=== PATIENT | female | born 1940 | race Caucasian/White ===

== ENCOUNTER 2018-02-13 00:52 | Inpatient (IN) | payer MEDICARE, OTHER ==
[2018-02-13 02:18] LABS: ADD MAN DIFF? NO; BASOPHIL # 0.1 10^3/ul (0.0-0.1); BASOPHILS % 0.7 % (0.0-2.0); EOSINOPHILS % 11.2 % (0.0-7.0); HEMATOCRIT 37.7 % (37.0-47.0); HEMOGLOBIN 11.8 g/dl (12.0-16.0); LYMPHOCYTES # 2.3 10^3/ul (0.8-2.9); LYMPHOCYTES % 24.6 % (15.0-51.0); MEAN CORPUSCULAR HGB CONC 31.3 g/dl (32.0-37.0); MEAN CORPUSCULAR VOLUME 89.5 fl (82.0-101.0); MEAN PLATELET VOLUME 11.3 fl (7.4-10.4); MONOCYTE # 0.7 10^3/ul (0.3-0.9); NEUTROPHIL # 5.1 10^3/ul (1.6-7.5); NEUTROPHILS % 55.2 % (39.0-77.0); PLATELET COUNT 230 10^3/UL (140-415); RED BLOOD COUNT 4.21 10^6/ul (4.20-5.40); RED CELL DISTRIBUTION WIDTH 15.6 % (11.5-14.5)
[2018-02-13 02:18] LABS: WHITE BLOOD COUNT 9.2 10^3/ul (4.8-10.8)
[2018-02-13 02:19] LABS: AADO2 Arterial 26.1 mmHg (7.0-24.0); Allen Test ACCEPTAB; Arterial Base Excess 1.8 mmol/L (-3.0-3); Arterial Blood Gas Oxygen Sat 92.7 mmHG (95.0-100.0); Arterial COHb 0.6 % (0.0-3.0); Arterial Fraction of Oxyhgb 92.1 % (93.0-99.0); Arterial HCO3 27.4 mmol/L (22.0-26.0); Arterial MetHb 0.1 % (0.0-1.5); Arterial Total Hemglobin 12.9 g/dl (12.0-18.0); Arterial pCO2 46.7 mmhg (35-45); MODE ROOM AIR; Site Right Radial
[2018-02-13 02:26] LABS: ALANINE AMINOTRANSFERASE 19 IU/L (13-69); ALBUMIN 3.7 g/dl (3.3-4.9); ALBUMIN/GLOBULIN RATIO 1.02; ALKALINE PHOSPHATASE 109 IU/L (42-121); ANION GAP 10 (8-16); ASPARTATE AMINO TRANSFERASE 26 IU/L (15-46); BILIRUBIN,INDIRECT 0.4 mg/dl (0-1.1); BILIRUBIN,TOTAL 0.4 mg/dl (0.2-1.3); BLOOD UREA NITROGEN 24 mg/dl (7-20); CALCIUM 8.9 mg/dl (8.4-10.2); CARBON DIOXIDE 26 mmol/L (21-31); CHLORIDE 109 mmol/L (97-110); CREATININE 0.89 mg/dl (0.44-1.00); GLUCOSE 69 mg/dl (70-220); SODIUM 141 mmol/L (135-144); TOTAL PROTEIN 7.3 g/dl (6.1-8.1)
[2018-02-13 02:37] LABS: B-TYPE NATRIURETIC PEPTIDE 297 PG/ML (0-450); INR 0.97; TROPONIN-I < 0.010 ng/ml (0.000-0.120)
[2018-02-13 02:40] LABS: D-DIMER 2227.86 ng/ml (<460)
[2018-02-13] MEDS: IOHEXOL 100 ML (03:10)
[2018-02-13] MEDS: SOD CHLORIDE 0.9% 100 ML (03:10)
[2018-02-13] MEDS: IOHEXOL 350MG/ML 50 ML BTL (03:10)
[2018-02-13] MEDS: KETOROLAC 15 MG INJ IV (04:36)
[2018-02-13] MEDS: ASPIRIN 81 MG TAB PO (05:30)
[2018-02-13] MEDS ORDERED: MAGNESIUM HYDROXIDE 30ML CUP PO (09:00)
[2018-02-13] MEDS ORDERED: ONDANSETRON 4 MG INJ IV (09:00)
[2018-02-13] MEDS ORDERED: DOCUSATE SODIUM 100 MG CAP PO (09:00)
[2018-02-13] MEDS ORDERED: ACETAMINOPHEN 325 MG TAB PO (09:00)
[2018-02-13] MEDS ORDERED: NITROGLYCERIN (SL) 0.4 MG TAB SL (09:00)
[2018-02-13] MEDS ORDERED: NACL 0.9% 3 ML SYG IV (09:00)
[2018-02-13] MEDS ORDERED: ALBUTEROL 0.083% (NEB) 2.5 MG/3 ML AMP HHN (09:30)
[2018-02-13] MEDS: ASPIRIN (EC) 81 MG TAB PO (11:18)
[2018-02-13] MEDS: ENOXAPARIN 40 MG/0.4 ML SYG SC (11:18)
[2018-02-13] MEDS ORDERED: DEXTROSE 50% 50 ML SYRINGE (11:25)
[2018-02-13] MEDS: DEXTROSE 50% 50 ML SYRINGE IV (11:42)
[2018-02-13] MEDS ORDERED: GLUCAGON 1 MG INJ IM (12:00)
[2018-02-13] MEDS ORDERED: GLUCOSE GEL 15 GRAM TUBE BUCCAL (12:00)
[2018-02-13] MEDS: INSULIN ASPART [NOVOLOG] 3 ML PEN SC ×3 (12:00→21:28)
[2018-02-13] MEDS ORDERED: GLUCOSE GEL 15 GRAM TUBE PO ×2 (12:00)
[2018-02-13] MEDS: ALBUTEROL/IPRATROPIUM (NEB) 3 ML AMP HHN ×3 (13:44→20:08)
[2018-02-13 13:46] LABS: MAGNESIUM 1.5 mg/dl (1.7-2.5)
[2018-02-13 13:48] LABS: HEMOGLOBIN A1C 9.7 % (0-5.9)
[2018-02-13] MEDS: METHYLPREDNISOLONE 125 MG INJ IV ×2 (13:52→21:14)
[2018-02-13] MEDS: HYDROCODONE/APAP (5/325) TAB PO (13:53)
[2018-02-13] MEDS: FUROSEMIDE 40 MG INJ IV (13:53)
[2018-02-13 17:26] LABS: IRON 51 ug/dl (35-150)
[2018-02-13 17:35] LABS: % IRON SATURATION 15 % SAT (22-52); TOTAL IRON BINDING CAPACITY 336 ug/dl (241-421)
[2018-02-13] MEDS: MAGNESIUM SULFATE 2 GM/50 ML 50 ML IVPB (18:27)
[2018-02-13] MEDS: INSULIN GLARGINE [LANTus] (100 UNITS/ML) SYG SC (21:29)
[2018-02-14] MEDS: METHYLPREDNISOLONE 125 MG INJ IV (06:20)
[2018-02-14 07:18] LABS: ADD MAN DIFF? NO
[2018-02-14 07:22] LABS: BASOPHILS % 0.1 % (0.0-2.0); HEMATOCRIT 39.4 % (37.0-47.0); HEMOGLOBIN 12.4 g/dl (12.0-16.0); LYMPHOCYTES # 0.8 10^3/ul (0.8-2.9); LYMPHOCYTES % 9.9 % (15.0-51.0); MEAN CORPUSCULAR HEMOGLOBIN 27.7 pg (29.0-33.0); MEAN CORPUSCULAR HGB CONC 31.5 g/dl (32.0-37.0); MEAN CORPUSCULAR VOLUME 88.1 fl (82.0-101.0); MEAN PLATELET VOLUME 11.5 fl (7.4-10.4); MONOCYTE # 0.2 10^3/ul (0.3-0.9); MONOCYTES % 2.5 % (0.0-11.0); NEUTROPHIL # 6.6 10^3/ul (1.6-7.5); NEUTROPHILS % 86.6 % (39.0-77.0); PLATELET COUNT 253 10^3/UL (140-415); RED BLOOD COUNT 4.47 10^6/ul (4.20-5.40); RED CELL DISTRIBUTION WIDTH 15.2 % (11.5-14.5)
[2018-02-14 07:22] LABS: WHITE BLOOD COUNT 7.7 10^3/ul (4.8-10.8)
[2018-02-14 08:08] LABS: ALBUMIN 3.6 g/dl (3.3-4.9); ANION GAP 12 (8-16); BLOOD UREA NITROGEN 24 mg/dl (7-20); CALCIUM 8.8 mg/dl (8.4-10.2); CARBON DIOXIDE 27 mmol/L (21-31); CHLORIDE 103 mmol/L (97-110); GLUCOSE 323 mg/dl (70-220); MAGNESIUM 1.6 mg/dl (1.7-2.5); PHOSPHORUS 3.8 mg/dl (2.5-4.9); POTASSIUM 4.9 mmol/L (3.5-5.1); SODIUM 137 mmol/L (135-144)
[2018-02-14] MEDS: INSULIN ASPART [NOVOLOG] 3 ML PEN SC ×4 (08:16→21:31)
[2018-02-14] MEDS: ALBUTEROL/IPRATROPIUM (NEB) 3 ML AMP HHN ×4 (09:14→20:03)
[2018-02-14] MEDS: ASPIRIN (EC) 81 MG TAB PO (09:43)
[2018-02-14] MEDS: MAGNESIUM OXIDE 400 MG TAB PO (09:44)
[2018-02-14] MEDS: ENOXAPARIN 40 MG/0.4 ML SYG SC (09:58)
[2018-02-14] MEDS: LOSARTAN 25 MG TAB PO ×2 (11:33→21:15)
[2018-02-14] MEDS: INSULIN GLARGINE [LANTus] (100 UNITS/ML) SYG SC ×2 (11:43→20:00)
[2018-02-14] MEDS: RANITIDINE 150 MG TAB PO (21:14)
[2018-02-14] MEDS: METHYLPREDNISOLONE 40 MG INJ IV (21:15)
[2018-02-14] MEDS: LORAZEPAM 1 MG TAB PO (21:15)
[2018-02-15] MEDS: INSULIN ASPART [NOVOLOG] 3 ML PEN SC ×6 (03:20→20:37)
[2018-02-15 06:09] LABS: ADD MAN DIFF? NO
[2018-02-15 06:21] LABS: BASOPHILS % 0.2 % (0.0-2.0); HEMATOCRIT 38.5 % (37.0-47.0); HEMOGLOBIN 12.1 g/dl (12.0-16.0); LYMPHOCYTES # 0.9 10^3/ul (0.8-2.9); LYMPHOCYTES % 9.3 % (15.0-51.0); MEAN CORPUSCULAR HGB CONC 31.4 g/dl (32.0-37.0); MEAN CORPUSCULAR VOLUME 89.1 fl (82.0-101.0); MEAN PLATELET VOLUME 11.2 fl (7.4-10.4); MONOCYTE # 0.5 10^3/ul (0.3-0.9); MONOCYTES % 4.9 % (0.0-11.0); PLATELET COUNT 263 10^3/UL (140-415); RED BLOOD COUNT 4.32 10^6/ul (4.20-5.40); RED CELL DISTRIBUTION WIDTH 15.3 % (11.5-14.5)
[2018-02-15 06:21] LABS: WHITE BLOOD COUNT 9.4 10^3/ul (4.8-10.8)
[2018-02-15 06:54] LABS: ALBUMIN 3.4 g/dl (3.3-4.9); ANION GAP 11 (8-16); BLOOD UREA NITROGEN 27 mg/dl (7-20); CALCIUM 8.6 mg/dl (8.4-10.2); CARBON DIOXIDE 30 mmol/L (21-31); CHLORIDE 103 mmol/L (97-110); CREATININE 0.94 mg/dl (0.44-1.00); GLUCOSE 243 mg/dl (70-220); MAGNESIUM 1.6 mg/dl (1.7-2.5); PHOSPHORUS 3.4 mg/dl (2.5-4.9); SODIUM 139 mmol/L (135-144)
[2018-02-15] MEDS: ALBUTEROL/IPRATROPIUM (NEB) 3 ML AMP HHN ×4 (08:25→20:40)
[2018-02-15] MEDS: METHYLPREDNISOLONE 40 MG INJ IV ×2 (08:46→20:29)
[2018-02-15] MEDS: ASPIRIN (EC) 81 MG TAB PO (08:47)
[2018-02-15] MEDS: ENOXAPARIN 40 MG/0.4 ML SYG SC (08:49)
[2018-02-15] MEDS: LOSARTAN 25 MG TAB PO ×2 (08:51→21:14)
[2018-02-15] MEDS: INSULIN GLARGINE [LANTus] (100 UNITS/ML) SYG SC ×2 (10:54→20:31)
[2018-02-15] MEDS: MAGNESIUM SULFATE 3 GM in DEXTROSE 5% 100 ML IVPB (12:04)
[2018-02-15] MEDS: LORAZEPAM 1 MG TAB PO (20:29)
[2018-02-15] MEDS: RANITIDINE 150 MG TAB PO (20:29)
[2018-02-16 06:33] LABS: ADD MAN DIFF? NO
[2018-02-16 06:38] LABS: BASOPHILS % 0.2 % (0.0-2.0); HEMATOCRIT 40.8 % (37.0-47.0); LYMPHOCYTES % 10.7 % (15.0-51.0); MEAN CORPUSCULAR HEMOGLOBIN 27.8 pg (29.0-33.0); MEAN CORPUSCULAR HGB CONC 31.9 g/dl (32.0-37.0); MEAN CORPUSCULAR VOLUME 87.4 fl (82.0-101.0); MONOCYTE # 0.4 10^3/ul (0.3-0.9); MONOCYTES % 4.3 % (0.0-11.0); NEUTROPHIL # 7.7 10^3/ul (1.6-7.5); NEUTROPHILS % 83.8 % (39.0-77.0); PLATELET COUNT 271 10^3/UL (140-415); RED BLOOD COUNT 4.67 10^6/ul (4.20-5.40); RED CELL DISTRIBUTION WIDTH 15.5 % (11.5-14.5)
[2018-02-16 06:38] LABS: WHITE BLOOD COUNT 9.2 10^3/ul (4.8-10.8)
[2018-02-16 06:56] LABS: ALBUMIN 3.8 g/dl (3.3-4.9); ANION GAP 12 (8-16); BLOOD UREA NITROGEN 32 mg/dl (7-20); CALCIUM 9.2 mg/dl (8.4-10.2); CARBON DIOXIDE 32 mmol/L (21-31); CHLORIDE 99 mmol/L (97-110); CREATININE 0.89 mg/dl (0.44-1.00); GLUCOSE 220 mg/dl (70-220); MAGNESIUM 1.9 mg/dl (1.7-2.5); PHOSPHORUS 3.7 mg/dl (2.5-4.9); SODIUM 138 mmol/L (135-144)
[2018-02-16] MEDS: METHYLPREDNISOLONE 40 MG INJ IV (08:15)
[2018-02-16] MEDS: LOSARTAN 25 MG TAB PO ×2 (08:15→11:17)
[2018-02-16] MEDS: ASPIRIN (EC) 81 MG TAB PO (08:15)
[2018-02-16] MEDS: ENOXAPARIN 40 MG/0.4 ML SYG SC (08:21)
[2018-02-16] MEDS: INSULIN ASPART [NOVOLOG] 3 ML PEN SC ×7 (08:21→20:10)
[2018-02-16] MEDS: INSULIN GLARGINE [LANTus] (100 UNITS/ML) SYG SC ×2 (08:49→20:18)
[2018-02-16] MEDS: ALBUTEROL/IPRATROPIUM (NEB) 3 ML AMP HHN ×4 (09:40→20:00)
[2018-02-16] MEDS: hydrALAzine 20 MG INJ IV ×2 (15:09→20:37)
[2018-02-16] MEDS: LORAZEPAM 1 MG TAB PO (20:09)
[2018-02-16] MEDS: RANITIDINE 150 MG TAB PO (20:09)
[2018-02-16] MEDS: LOSARTAN 50 MG TAB PO (20:10)
[2018-02-16] MEDS: HYDROCODONE/APAP (10/325) TAB PO (21:29)
[2018-02-17] MEDS: hydrALAzine 20 MG INJ IV (02:10)
[2018-02-17 06:36] LABS: ANION GAP 11 (8-16); BLOOD UREA NITROGEN 38 mg/dl (7-20); CALCIUM 8.8 mg/dl (8.4-10.2); CARBON DIOXIDE 31 mmol/L (21-31); CHLORIDE 101 mmol/L (97-110); CREATININE 0.99 mg/dl (0.44-1.00); GLUCOSE 58 mg/dl (70-220); MAGNESIUM 1.8 mg/dl (1.7-2.5); POTASSIUM 4.2 mmol/L (3.5-5.1); SODIUM 139 mmol/L (135-144)
[2018-02-17] MEDS: INSULIN ASPART [NOVOLOG] 3 ML PEN SC ×7 (07:31→21:00)
[2018-02-17] MEDS: ENOXAPARIN 40 MG/0.4 ML SYG SC (08:12)
[2018-02-17] MEDS: INSULIN GLARGINE [LANTus] (100 UNITS/ML) SYG SC ×2 (08:13→22:07)
[2018-02-17] MEDS: ASPIRIN (EC) 81 MG TAB PO (08:14)
[2018-02-17] MEDS: HYDROCODONE/APAP (5/325) TAB PO (08:14)
[2018-02-17] MEDS: LOSARTAN 50 MG TAB PO ×2 (08:14→20:17)
[2018-02-17] MEDS: ALBUTEROL/IPRATROPIUM (NEB) 3 ML AMP HHN ×4 (09:14→20:01)
[2018-02-17] MEDS: DEXTROSE 50% 50 ML SYRINGE IV (11:38)
[2018-02-17 14:40] LABS: ALANINE AMINOTRANSFERASE 65 IU/L (13-69); ALBUMIN 3.7 g/dl (3.3-4.9); ALBUMIN/GLOBULIN RATIO 1.05; ALKALINE PHOSPHATASE 94 IU/L (42-121); ANION GAP 12 (8-16); ASPARTATE AMINO TRANSFERASE 65 IU/L (15-46); BILIRUBIN,INDIRECT 0.6 mg/dl (0-1.1); BILIRUBIN,TOTAL 0.6 mg/dl (0.2-1.3); BLOOD UREA NITROGEN 41 mg/dl (7-20); CALCIUM 8.8 mg/dl (8.4-10.2); CARBON DIOXIDE 30 mmol/L (21-31); CHLORIDE 99 mmol/L (97-110); CREATININE 1.22 mg/dl (0.44-1.00); GLUCOSE 117 mg/dl (70-220); POTASSIUM 4.2 mmol/L (3.5-5.1); SODIUM 137 mmol/L (135-144); TOTAL PROTEIN 7.2 g/dl (6.1-8.1)
[2018-02-17] MEDS ORDERED: INSULIN GLARGINE [LANTus] (100 UNITS/ML) SYG SC (20:00)
[2018-02-17] MEDS: LORAZEPAM 1 MG TAB PO (20:10)
[2018-02-17] MEDS: RANITIDINE 150 MG TAB PO (20:10)
[2018-02-18] MEDS: HYDROCODONE/APAP (10/325) TAB PO (00:22)
[2018-02-18] MEDS: DEXTROSE 50% 50 ML SYRINGE IV (03:13)
[2018-02-18 07:47] LABS: ADD MAN DIFF? NO
[2018-02-18 07:52] LABS: BASOPHILS % 0.6 % (0.0-2.0); EOSINOPHILS # 0.5 10^3/ul (0.0-0.5); EOSINOPHILS % 7.4 % (0.0-7.0); HEMATOCRIT 42.5 % (37.0-47.0); HEMOGLOBIN 13.3 g/dl (12.0-16.0); LYMPHOCYTES # 1.8 10^3/ul (0.8-2.9); LYMPHOCYTES % 25.6 % (15.0-51.0); MEAN CORPUSCULAR HEMOGLOBIN 28.5 pg (29.0-33.0); MEAN CORPUSCULAR HGB CONC 31.3 g/dl (32.0-37.0); MEAN PLATELET VOLUME 10.8 fl (7.4-10.4); MONOCYTE # 0.6 10^3/ul (0.3-0.9); MONOCYTES % 8.6 % (0.0-11.0); NEUTROPHILS % 57.1 % (39.0-77.0); PLATELET COUNT 275 10^3/UL (140-415); RED BLOOD COUNT 4.67 10^6/ul (4.20-5.40); RED CELL DISTRIBUTION WIDTH 15.9 % (11.5-14.5)
[2018-02-18] MEDS: INSULIN ASPART [NOVOLOG] 3 ML PEN SC ×3 (07:55→11:50)
[2018-02-18] MEDS ORDERED: INSULIN GLARGINE [LANTus] (100 UNITS/ML) SYG SC (08:00)
[2018-02-18 08:19] LABS: ANION GAP 10 (8-16); BLOOD UREA NITROGEN 49 mg/dl (7-20); CALCIUM 8.4 mg/dl (8.4-10.2); CARBON DIOXIDE 34 mmol/L (21-31); CHLORIDE 99 mmol/L (97-110); CREATININE 1.35 mg/dl (0.44-1.00); MAGNESIUM 1.9 mg/dl (1.7-2.5); PHOSPHORUS 5.1 mg/dl (2.5-4.9); POTASSIUM 4.1 mmol/L (3.5-5.1); SODIUM 139 mmol/L (135-144)
[2018-02-18 08:23] LABS: GLUCOSE 43 mg/dl (70-220)
[2018-02-18] MEDS: ASPIRIN (EC) 81 MG TAB PO (08:28)
[2018-02-18] MEDS: LOSARTAN 50 MG TAB PO (08:28)
[2018-02-18] MEDS: HYDROCODONE/APAP (5/325) TAB PO (08:33)
[2018-02-18] MEDS: ENOXAPARIN 40 MG/0.4 ML SYG SC (08:38)
[2018-02-18] MEDS: ALBUTEROL/IPRATROPIUM (NEB) 3 ML AMP HHN ×2 (08:47→13:00)
[2018-02-18] MEDS ORDERED: HYDROCORTISONE 1% 28 GM CR TOP (09:30)
== END 2018-02-18 15:55 | DRG 190 ==
LOC: E/R 00:52 → TEL 05:05
DX: J44.1 Chronic obstructive pulmonary disease with (acute) exacerbation (principal); J96.01 Acute respiratory failure with hypoxia; J96.02 Acute respiratory failure with hypercapnia; Z68.43 Body mass index [BMI] 50.0-59.9, adult; E66.2 Morbid (severe) obesity with alveolar hypoventilation; E11.649 Type 2 diabetes mellitus with hypoglycemia without coma; E83.42 Hypomagnesemia; J20.9 Acute bronchitis, unspecified; J44.0 Chronic obstructive pulmonary disease with (acute) lower respiratory infection; R25.2 Cramp and spasm; I10 Essential (primary) hypertension; D64.9 Anemia, unspecified; E78.5 Hyperlipidemia, unspecified; Z79.4 Long term (current) use of insulin; Z79.82 Long term (current) use of aspirin; Z98.51 Tubal ligation status; Z98.890 Other specified postprocedural states; Z87.891 Personal history of nicotine dependence
CPT/HCPCS: 36415; 36600; 71045; 71275; 80048; 80053; 80069; 82803; 82962; 83036; 83540; 83735; 83880; 84100; 84484; 85025; 85378; 85610; 85730; 93005; 93306; 93970; 94640; 96374; 97110; 97163; 97165; 97530; 97535; 99285-25

== ENCOUNTER 2018-02-18 16:05 | Inpatient (IN) | payer MEDICARE, OTHER ==
[2018-02-18] MEDS ORDERED: ONDANSETRON 4 MG TAB PO (17:00)
[2018-02-18] MEDS ORDERED: NITROGLYCERIN (SL) 0.4 MG TAB SL (17:00)
[2018-02-18] MEDS ORDERED: PENDING SANTYL ORDER FOR WOUND CARE XX (17:00)
[2018-02-18] MEDS: ALBUTEROL/IPRATROPIUM (NEB) 3 ML AMP HHN ×2 (17:00→20:19)
[2018-02-18 17:09] LABS: ADD UMIC YES; UR ASCORBIC ACID NEGATIVE (NEGATIVE); UR BACTERIA MODERATE /HPF (NONE SEEN); UR BILIRUBIN (Dip) NEGATIVE (NEGATIVE); UR BLOOD (Dip) NEGATIVE (NEGATIVE); UR CLARITY SLIGHTLY CLOUDY (CLEAR); UR COLOR YELLOW (YELLOW); UR GLUCOSE (Dip) NEGATIVE (NEGATIVE); UR KETONES (Dip) NEGATIVE (NEGATIVE); UR LEUKOCYTE ESTERASE (Dip) 1+ Leu/ul (NEGATIVE); UR NITRITE (Dip) NEGATIVE (NEGATIVE); UR RBC 0 /HPF (0-5); UR SPECIFIC GRAVITY (Dip) 1.005 (1.003-1.030); UR SQUAMOUS EPITHELIAL CELL FEW /HPF (FEW); UR TOTAL PROTEIN (Dip) NEGATIVE (NEGATIVE); UR UROBILINOGEN (Dip) NEGATIVE (NEGATIVE); UR WBC 7 /HPF (0-5)
[2018-02-18] MEDS: INSULIN ASPART [NOVOLOG] 3 ML PEN SC ×2 (17:35→21:00)
[2018-02-18] MEDS: ALBUTEROL 0.083% (NEB) 2.5 MG/3 ML AMP HHN (18:00)
[2018-02-18] MEDS ORDERED: GLUCAGON 1 MG INJ IM (18:30)
[2018-02-18] MEDS ORDERED: DEXTROSE 50% 50 ML SYRINGE IV ×2 (18:30)
[2018-02-18] MEDS ORDERED: GLUCOSE GEL 15 GRAM TUBE BUCCAL (18:30)
[2018-02-18] MEDS ORDERED: GLUCOSE GEL 15 GRAM TUBE PO ×2 (18:30)
[2018-02-18] MEDS: DOCUSATE SODIUM 100 MG CAP PO (21:00)
[2018-02-18] MEDS: RANITIDINE 150 MG TAB PO (21:01)
[2018-02-18] MEDS: LORAZEPAM 1 MG TAB PO (21:01)
[2018-02-18] MEDS: LOSARTAN 50 MG TAB PO (21:02)
[2018-02-18] MEDS: HYDROCORTISONE 1% 28 GM CR TOP (21:06)
[2018-02-19] MEDS: ALBUTEROL/IPRATROPIUM (NEB) 3 ML AMP HHN ×6 (00:33→20:21)
[2018-02-19] MEDS: ACCU-CHEK XX (02:00)
[2018-02-19] MEDS: HYDROCODONE/APAP (10/325) TAB PO ×3 (02:05→21:49)
[2018-02-19 07:34] LABS: ADD MAN DIFF? NO
[2018-02-19] MEDS: INSULIN ASPART [NOVOLOG] 3 ML PEN SC ×4 (07:35→20:43)
[2018-02-19 07:39] LABS: BASOPHILS % 0.4 % (0.0-2.0); EOSINOPHILS # 0.6 10^3/ul (0.0-0.5); EOSINOPHILS % 8.1 % (0.0-7.0); HEMATOCRIT 41.2 % (37.0-47.0); HEMOGLOBIN 12.6 g/dl (12.0-16.0); LYMPHOCYTES # 1.7 10^3/ul (0.8-2.9); LYMPHOCYTES % 22.9 % (15.0-51.0); MEAN CORPUSCULAR HEMOGLOBIN 27.2 pg (29.0-33.0); MEAN CORPUSCULAR HGB CONC 30.6 g/dl (32.0-37.0); MEAN PLATELET VOLUME 10.7 fl (7.4-10.4); MONOCYTE # 0.5 10^3/ul (0.3-0.9); MONOCYTES % 7.3 % (0.0-11.0); NEUTROPHIL # 4.4 10^3/ul (1.6-7.5); NEUTROPHILS % 60.8 % (39.0-77.0); PLATELET COUNT 260 10^3/UL (140-415); RED BLOOD COUNT 4.63 10^6/ul (4.20-5.40); RED CELL DISTRIBUTION WIDTH 15.7 % (11.5-14.5)
[2018-02-19 07:39] LABS: WHITE BLOOD COUNT 7.3 10^3/ul (4.8-10.8)
[2018-02-19 08:00] LABS: ALANINE AMINOTRANSFERASE 43 IU/L (13-69); ALBUMIN 3.2 g/dl (3.3-4.9); ALBUMIN/GLOBULIN RATIO 0.96; ALKALINE PHOSPHATASE 84 IU/L (42-121); ANION GAP 11 (8-16); ASPARTATE AMINO TRANSFERASE 25 IU/L (15-46); BILIRUBIN,INDIRECT 0.5 mg/dl (0-1.1); BILIRUBIN,TOTAL 0.5 mg/dl (0.2-1.3); BLOOD UREA NITROGEN 47 mg/dl (7-20); CALCIUM 8.4 mg/dl (8.4-10.2); CARBON DIOXIDE 29 mmol/L (21-31); CHLORIDE 103 mmol/L (97-110); CREATININE 1.17 mg/dl (0.44-1.00); GLUCOSE 140 mg/dl (70-220); POTASSIUM 4.8 mmol/L (3.5-5.1); SODIUM 138 mmol/L (135-144); TOTAL PROTEIN 6.5 g/dl (6.1-8.1)
[2018-02-19] MEDS: DOCUSATE SODIUM 100 MG CAP PO ×2 (09:00→21:00)
[2018-02-19] MEDS: ENOXAPARIN 30 MG/0.3 ML SYG SC (09:11)
[2018-02-19] MEDS: ASPIRIN (EC) 81 MG TAB PO (09:11)
[2018-02-19] MEDS: LOSARTAN 50 MG TAB PO ×2 (09:12→20:16)
[2018-02-19] MEDS: HYDROCORTISONE 1% 28 GM CR TOP ×2 (09:12→20:17)
[2018-02-19] MEDS: RANITIDINE 150 MG TAB PO (20:15)
[2018-02-19] MEDS: INSULIN GLARGINE [LANTus] (100 UNITS/ML) SYG SC (21:26)
[2018-02-19] MEDS: LORAZEPAM 1 MG TAB PO (21:49)
[2018-02-20] MEDS: ALBUTEROL/IPRATROPIUM (NEB) 3 ML AMP HHN ×6 (01:21→20:29)
[2018-02-20] MEDS: ACCU-CHEK XX (02:12)
[2018-02-20] MEDS: ENOXAPARIN 30 MG/0.3 ML SYG SC (09:02)
[2018-02-20] MEDS: INSULIN ASPART [NOVOLOG] 3 ML PEN SC ×5 (09:02→20:53)
[2018-02-20] MEDS: DOCUSATE SODIUM 100 MG CAP PO ×2 (09:06→20:57)
[2018-02-20] MEDS: LOSARTAN 50 MG TAB PO ×2 (09:06→20:59)
[2018-02-20] MEDS: ASPIRIN (EC) 81 MG TAB PO (09:06)
[2018-02-20] MEDS: HYDROCORTISONE 1% 28 GM CR TOP ×2 (09:07→21:00)
[2018-02-20] MEDS: CIPROFLOXACIN 500 MG TAB PO ×2 (18:00→18:56)
[2018-02-20] MEDS ORDERED: CEFTRIAXONE 1 GM/50 ML (PMX) 50 ML IVPB (18:00)
[2018-02-20] MEDS: INSULIN GLARGINE [LANTus] (100 UNITS/ML) SYG SC (20:53)
[2018-02-20] MEDS: RANITIDINE 150 MG TAB PO (20:56)
[2018-02-20] MEDS: HYDROCODONE/APAP (5/325) TAB PO (22:00)
[2018-02-20] MEDS: LORAZEPAM 1 MG TAB PO (22:00)
[2018-02-21] MEDS: ALBUTEROL/IPRATROPIUM (NEB) 3 ML AMP HHN ×6 (00:58→20:27)
[2018-02-21] MEDS: ACCU-CHEK XX (02:00)
[2018-02-21] MEDS: CIPROFLOXACIN 500 MG TAB PO ×2 (06:17→17:15)
[2018-02-21] MEDS: MAGNESIUM HYDROXIDE 30ML CUP PO (06:17)
[2018-02-21] MEDS: INSULIN ASPART [NOVOLOG] 3 ML PEN SC ×7 (07:44→20:45)
[2018-02-21] MEDS: ASPIRIN (EC) 81 MG TAB PO (09:19)
[2018-02-21] MEDS: HYDROCORTISONE 1% 28 GM CR TOP ×2 (09:19→21:47)
[2018-02-21] MEDS: DOCUSATE SODIUM 100 MG CAP PO ×2 (09:19→20:30)
[2018-02-21] MEDS: LOSARTAN 50 MG TAB PO ×2 (09:20→20:36)
[2018-02-21] MEDS: ENOXAPARIN 30 MG/0.3 ML SYG SC (09:21)
[2018-02-21] MEDS: LACTULOSE 30ML CUP PO (09:23)
[2018-02-21] MEDS: LORAZEPAM 1 MG TAB PO ×2 (20:30→21:46)
[2018-02-21] MEDS: INSULIN GLARGINE [LANTus] (100 UNITS/ML) SYG SC (20:46)
[2018-02-21] MEDS: HYDROCODONE/APAP (5/325) TAB PO (21:46)
[2018-02-21] MEDS: RANITIDINE 150 MG TAB PO (21:46)
[2018-02-22] MEDS: ALBUTEROL/IPRATROPIUM (NEB) 3 ML AMP HHN ×6 (01:50→20:19)
[2018-02-22] MEDS: ACCU-CHEK XX (02:27)
[2018-02-22] MEDS: CIPROFLOXACIN 500 MG TAB PO ×2 (06:33→17:35)
[2018-02-22] MEDS: INSULIN ASPART [NOVOLOG] 3 ML PEN SC ×7 (07:46→21:05)
[2018-02-22] MEDS: DOCUSATE SODIUM 100 MG CAP PO ×2 (09:00→21:07)
[2018-02-22] MEDS: ENOXAPARIN 30 MG/0.3 ML SYG SC (09:02)
[2018-02-22] MEDS: ASPIRIN (EC) 81 MG TAB PO (09:03)
[2018-02-22] MEDS: LOSARTAN 50 MG TAB PO ×2 (09:03→21:07)
[2018-02-22] MEDS: HYDROCORTISONE 1% 28 GM CR TOP ×2 (09:04→21:09)
[2018-02-22] MEDS: INSULIN GLARGINE [LANTus] (100 UNITS/ML) SYG SC (21:07)
[2018-02-22] MEDS: RANITIDINE 150 MG TAB PO (21:07)
[2018-02-22] MEDS: LORAZEPAM 1 MG TAB PO (21:07)
[2018-02-22] MEDS: FLUOCINONIDE 0.05% 15 GM CR TOP (21:09)
[2018-02-22] MEDS: HYDROCODONE/APAP (5/325) TAB PO (21:59)
[2018-02-23] MEDS: ALBUTEROL/IPRATROPIUM (NEB) 3 ML AMP HHN ×6 (01:00→22:42)
[2018-02-23] MEDS: ACCU-CHEK XX (02:00)
[2018-02-23] MEDS: CIPROFLOXACIN 500 MG TAB PO ×2 (05:25→18:44)
[2018-02-23] MEDS: INSULIN ASPART [NOVOLOG] 3 ML PEN SC ×7 (07:46→20:34)
[2018-02-23] MEDS: LOSARTAN 50 MG TAB PO ×2 (09:00→20:29)
[2018-02-23] MEDS: HYDROCODONE/APAP (10/325) TAB PO (09:10)
[2018-02-23] MEDS: DOCUSATE SODIUM 100 MG CAP PO ×2 (09:11→20:28)
[2018-02-23] MEDS: FLUOCINONIDE 0.05% 15 GM CR TOP ×2 (09:11→20:35)
[2018-02-23] MEDS: ASPIRIN (EC) 81 MG TAB PO (09:11)
[2018-02-23] MEDS: ENOXAPARIN 30 MG/0.3 ML SYG SC (09:12)
[2018-02-23] MEDS: HYDROCORTISONE 1% 28 GM CR TOP ×2 (09:12→22:37)
[2018-02-23] MEDS: COLLAGENASE 5 GM (UD JAR) TOP (09:47)
[2018-02-23] MEDS: SODIUM HYPOCHLORITE (1/40) 1 APPLIC BTL IRR (09:47)
[2018-02-23] MEDS: RANITIDINE 150 MG TAB PO (20:28)
[2018-02-23] MEDS: INSULIN GLARGINE [LANTus] (100 UNITS/ML) SYG SC (20:32)
[2018-02-23] MEDS: LORAZEPAM 1 MG TAB PO (22:26)
[2018-02-23] MEDS: HYDROCODONE/APAP (5/325) TAB PO (22:26)
[2018-02-24] MEDS: ALBUTEROL/IPRATROPIUM (NEB) 3 ML AMP HHN ×5 (01:00→21:00)
[2018-02-24] MEDS: ACCU-CHEK XX (02:39)
[2018-02-24] MEDS: INSULIN ASPART [NOVOLOG] 3 ML PEN SC ×7 (07:35→21:28)
[2018-02-24] MEDS: DOCUSATE SODIUM 100 MG CAP PO ×2 (08:21→21:20)
[2018-02-24] MEDS: ASPIRIN (EC) 81 MG TAB PO (08:21)
[2018-02-24] MEDS: LOSARTAN 50 MG TAB PO ×2 (08:22→21:19)
[2018-02-24] MEDS: HYDROCORTISONE 1% 28 GM CR TOP ×2 (08:22→21:19)
[2018-02-24] MEDS: FLUOCINONIDE 0.05% 15 GM CR TOP ×2 (08:23→21:19)
[2018-02-24] MEDS: ENOXAPARIN 30 MG/0.3 ML SYG SC (08:25)
[2018-02-24] MEDS: SODIUM HYPOCHLORITE (1/40) 1 APPLIC BTL IRR (09:00)
[2018-02-24] MEDS: COLLAGENASE 5 GM (UD JAR) TOP (09:00)
[2018-02-24] MEDS: RANITIDINE 150 MG TAB PO (21:19)
[2018-02-24] MEDS: LORAZEPAM 1 MG TAB PO (21:20)
[2018-02-24] MEDS: INSULIN GLARGINE [LANTus] (100 UNITS/ML) SYG SC (21:28)
[2018-02-24] MEDS: HYDROCODONE/APAP (10/325) TAB PO (21:29)
[2018-02-25] MEDS: ALBUTEROL/IPRATROPIUM (NEB) 3 ML AMP HHN ×6 (01:11→19:45)
[2018-02-25] MEDS: ACCU-CHEK XX (02:00)
[2018-02-25] MEDS: INSULIN ASPART [NOVOLOG] 3 ML PEN SC ×7 (07:35→21:00)
[2018-02-25] MEDS: FLUOCINONIDE 0.05% 15 GM CR TOP ×2 (09:04→21:23)
[2018-02-25] MEDS: ENOXAPARIN 30 MG/0.3 ML SYG SC (09:04)
[2018-02-25] MEDS: HYDROCORTISONE 1% 28 GM CR TOP ×2 (09:04→21:23)
[2018-02-25] MEDS: LOSARTAN 50 MG TAB PO ×2 (09:05→21:22)
[2018-02-25] MEDS: DOCUSATE SODIUM 100 MG CAP PO ×2 (09:05→21:22)
[2018-02-25] MEDS: ASPIRIN (EC) 81 MG TAB PO (09:05)
[2018-02-25] MEDS: COLLAGENASE 5 GM (UD JAR) TOP (09:07)
[2018-02-25] MEDS: SODIUM HYPOCHLORITE (1/40) 1 APPLIC BTL IRR (11:10)
[2018-02-25] MEDS ORDERED: VANCOMYCIN IV PER PHARMACY XX (12:00)
[2018-02-25] MEDS: AMOXICILLIN/CLAV 875 MG TAB PO ×2 (15:50→22:44)
[2018-02-25] MEDS: INSULIN GLARGINE [LANTus] (100 UNITS/ML) SYG SC (21:19)
[2018-02-25] MEDS: RANITIDINE 150 MG TAB PO (21:23)
[2018-02-25] MEDS: HYDROCODONE/APAP (10/325) TAB PO (22:44)
[2018-02-25] MEDS: LORAZEPAM 1 MG TAB PO (22:44)
[2018-02-26] MEDS: ALBUTEROL/IPRATROPIUM (NEB) 3 ML AMP HHN ×6 (00:11→20:48)
[2018-02-26] MEDS: ACCU-CHEK XX (02:00)
[2018-02-26] MEDS: INSULIN ASPART [NOVOLOG] 3 ML PEN SC ×8 (07:45→21:31)
[2018-02-26] MEDS: FLUOCINONIDE 0.05% 15 GM CR TOP ×2 (09:00→21:29)
[2018-02-26] MEDS: SODIUM HYPOCHLORITE (1/40) 1 APPLIC BTL IRR (09:00)
[2018-02-26] MEDS: HYDROCORTISONE 1% 28 GM CR TOP ×2 (09:00→21:29)
[2018-02-26] MEDS: COLLAGENASE 5 GM (UD JAR) TOP (09:09)
[2018-02-26] MEDS: LOSARTAN 50 MG TAB PO ×2 (09:10→21:28)
[2018-02-26] MEDS: AMOXICILLIN/CLAV 875 MG TAB PO (09:10)
[2018-02-26] MEDS: ASPIRIN (EC) 81 MG TAB PO (09:11)
[2018-02-26] MEDS: HYDROCODONE/APAP (10/325) TAB PO (09:11)
[2018-02-26] MEDS: DOCUSATE SODIUM 100 MG CAP PO ×2 (09:11→21:00)
[2018-02-26] MEDS: ENOXAPARIN 30 MG/0.3 ML SYG SC (09:13)
[2018-02-26] MEDS: BISACODYL 10 MG SUPP PR (10:21)
[2018-02-26] MEDS: TRIMETHOPRIM/SULFAMETHOX (DS) TAB PO (10:21)
[2018-02-26] MEDS: MUPIROCIN 2% 22 GM OINT TOP (13:25)
[2018-02-26] MEDS: LINAGLIPTIN 5 MG TABLET PO (13:25)
[2018-02-26] MEDS: HYDROCODONE/APAP (5/325) TAB PO ×2 (13:25→21:52)
[2018-02-26] MEDS: RANITIDINE 150 MG TAB PO (21:27)
[2018-02-26] MEDS: INSULIN GLARGINE [LANTus] (100 UNITS/ML) SYG SC (21:30)
[2018-02-26] MEDS: LORAZEPAM 1 MG TAB PO (21:49)
[2018-02-27] MEDS: ALBUTEROL/IPRATROPIUM (NEB) 3 ML AMP HHN ×6 (00:15→21:57)
[2018-02-27] MEDS: ACCU-CHEK XX (02:19)
[2018-02-27] MEDS: INSULIN ASPART [NOVOLOG] 3 ML PEN SC ×7 (07:35→21:22)
[2018-02-27] MEDS: ASPIRIN (EC) 81 MG TAB PO (08:54)
[2018-02-27] MEDS: TRIMETHOPRIM/SULFAMETHOX (DS) TAB PO (08:55)
[2018-02-27] MEDS: LINAGLIPTIN 5 MG TABLET PO (08:55)
[2018-02-27] MEDS: DOCUSATE SODIUM 100 MG CAP PO ×2 (08:55→21:12)
[2018-02-27] MEDS: ENOXAPARIN 30 MG/0.3 ML SYG SC (08:56)
[2018-02-27] MEDS: HYDROCORTISONE 1% 28 GM CR TOP ×2 (08:58→21:15)
[2018-02-27] MEDS: FLUOCINONIDE 0.05% 15 GM CR TOP ×2 (08:58→21:15)
[2018-02-27] MEDS: COLLAGENASE 5 GM (UD JAR) TOP (08:59)
[2018-02-27] MEDS: LOSARTAN 50 MG TAB PO ×2 (09:00→21:12)
[2018-02-27] MEDS: MUPIROCIN 2% 22 GM OINT TOP (12:10)
[2018-02-27] MEDS: LORAZEPAM 1 MG TAB PO (21:01)
[2018-02-27] MEDS: HYDROCODONE/APAP (5/325) TAB PO (21:02)
[2018-02-27] MEDS: RANITIDINE 150 MG TAB PO (21:12)
[2018-02-27] MEDS: INSULIN GLARGINE [LANTus] (100 UNITS/ML) SYG SC (21:21)
[2018-02-27] MEDS: ACETAMINOPHEN 325 MG TAB PO (23:47)
[2018-02-28] MEDS: ALBUTEROL/IPRATROPIUM (NEB) 3 ML AMP HHN ×6 (01:00→20:46)
[2018-02-28] MEDS: HYDROCODONE/APAP (10/325) TAB PO ×3 (02:14→15:19)
[2018-02-28] MEDS: ACCU-CHEK XX (02:22)
[2018-02-28] MEDS: INSULIN ASPART [NOVOLOG] 3 ML PEN SC ×7 (07:35→21:03)
[2018-02-28] MEDS: MUPIROCIN 2% 22 GM OINT TOP (08:10)
[2018-02-28] MEDS: DOCUSATE SODIUM 100 MG CAP PO ×2 (08:10→20:43)
[2018-02-28] MEDS: TRIMETHOPRIM/SULFAMETHOX (DS) TAB PO (08:10)
[2018-02-28] MEDS: ASPIRIN (EC) 81 MG TAB PO (08:10)
[2018-02-28] MEDS: LINAGLIPTIN 5 MG TABLET PO (08:11)
[2018-02-28] MEDS: LOSARTAN 50 MG TAB PO ×2 (08:11→20:43)
[2018-02-28] MEDS: ENOXAPARIN 30 MG/0.3 ML SYG SC (08:16)
[2018-02-28] MEDS: HYDROCORTISONE 1% 28 GM CR TOP ×2 (09:00→21:19)
[2018-02-28] MEDS: FLUOCINONIDE 0.05% 15 GM CR TOP ×2 (10:00→21:19)
[2018-02-28] MEDS: COLLAGENASE 5 GM (UD JAR) TOP (10:00)
[2018-02-28] MEDS: DICLOFENAC SODIUM 1% GEL 100 GM TUBE TP ×2 (11:51→21:04)
[2018-02-28] MEDS: LIDOCAINE 2% JELLY 5 ML TOP (14:08)
[2018-02-28] MEDS: RANITIDINE 150 MG TAB PO (20:43)
[2018-02-28] MEDS: INSULIN GLARGINE [LANTus] (100 UNITS/ML) SYG SC (21:00)
[2018-02-28] MEDS: LORAZEPAM 1 MG TAB PO (21:49)
[2018-02-28] MEDS: HYDROCODONE/APAP (5/325) TAB PO (21:50)
[2018-03-01] MEDS: ALBUTEROL/IPRATROPIUM (NEB) 3 ML AMP HHN ×6 (00:47→20:25)
[2018-03-01] MEDS: ACCU-CHEK XX (02:10)
[2018-03-01] MEDS: HYDROCODONE/APAP (10/325) TAB PO ×3 (02:28→20:58)
[2018-03-01] MEDS: INSULIN ASPART [NOVOLOG] 3 ML PEN SC ×7 (07:33→21:11)
[2018-03-01] MEDS: DICLOFENAC SODIUM 1% GEL 100 GM TUBE TP ×2 (08:46→21:03)
[2018-03-01] MEDS: MUPIROCIN 2% 22 GM OINT TOP (08:46)
[2018-03-01] MEDS: DOCUSATE SODIUM 100 MG CAP PO ×2 (08:47→21:01)
[2018-03-01] MEDS: LINAGLIPTIN 5 MG TABLET PO (08:47)
[2018-03-01] MEDS: TRIMETHOPRIM/SULFAMETHOX (DS) TAB PO (08:47)
[2018-03-01] MEDS: ASPIRIN (EC) 81 MG TAB PO (08:47)
[2018-03-01] MEDS: LOSARTAN 50 MG TAB PO ×2 (08:47→21:02)
[2018-03-01] MEDS: ENOXAPARIN 30 MG/0.3 ML SYG SC (08:49)
[2018-03-01] MEDS: FLUOCINONIDE 0.05% 15 GM CR TOP ×2 (09:00→21:20)
[2018-03-01] MEDS: COLLAGENASE 5 GM (UD JAR) TOP (12:00)
[2018-03-01] MEDS: LORAZEPAM 1 MG TAB PO (21:01)
[2018-03-01] MEDS: RANITIDINE 150 MG TAB PO (21:01)
[2018-03-01] MEDS: INSULIN GLARGINE [LANTus] (100 UNITS/ML) SYG SC (21:12)
[2018-03-02] MEDS: HYDROCODONE/APAP (5/325) TAB PO ×2 (00:42→09:42)
[2018-03-02] MEDS: ALBUTEROL/IPRATROPIUM (NEB) 3 ML AMP HHN ×6 (01:00→20:20)
[2018-03-02] MEDS: ACCU-CHEK XX (02:23)
[2018-03-02] MEDS: INSULIN ASPART [NOVOLOG] 3 ML PEN SC ×7 (08:26→20:13)
[2018-03-02] MEDS: LOSARTAN 50 MG TAB PO ×2 (09:00→20:09)
[2018-03-02] MEDS: DOCUSATE SODIUM 100 MG CAP PO ×3 (09:00→20:10)
[2018-03-02] MEDS: LINAGLIPTIN 5 MG TABLET PO (09:06)
[2018-03-02] MEDS: TRIMETHOPRIM/SULFAMETHOX (DS) TAB PO (09:06)
[2018-03-02] MEDS: ASPIRIN (EC) 81 MG TAB PO (09:09)
[2018-03-02] MEDS: ENOXAPARIN 30 MG/0.3 ML SYG SC (09:16)
[2018-03-02] MEDS: MUPIROCIN 2% 22 GM OINT TOP (11:37)
[2018-03-02] MEDS: COLLAGENASE 5 GM (UD JAR) TOP (11:37)
[2018-03-02] MEDS: DICLOFENAC SODIUM 1% GEL 100 GM TUBE TP ×2 (11:37→20:19)
[2018-03-02] MEDS: FLUOCINONIDE 0.05% 15 GM CR TOP ×2 (11:37→20:19)
[2018-03-02] MEDS: HYDROCODONE/APAP (10/325) TAB PO ×2 (17:48→22:51)
[2018-03-02] MEDS: RANITIDINE 150 MG TAB PO (20:09)
[2018-03-02] MEDS: INSULIN GLARGINE [LANTus] (100 UNITS/ML) SYG SC (20:18)
[2018-03-02] MEDS: LORAZEPAM 1 MG TAB PO (21:24)
[2018-03-03] MEDS: ALBUTEROL/IPRATROPIUM (NEB) 3 ML AMP HHN ×6 (00:43→19:39)
[2018-03-03] MEDS: ACCU-CHEK XX (02:00)
[2018-03-03] MEDS: HYDROCODONE/APAP (10/325) TAB PO ×2 (03:44→22:03)
[2018-03-03] MEDS: INSULIN ASPART [NOVOLOG] 3 ML PEN SC ×7 (07:35→21:00)
[2018-03-03] MEDS: LINAGLIPTIN 5 MG TABLET PO (08:04)
[2018-03-03] MEDS: MAGNESIUM HYDROXIDE 30ML CUP PO (08:05)
[2018-03-03] MEDS: DOCUSATE SODIUM 100 MG CAP PO ×2 (08:05→21:02)
[2018-03-03] MEDS: ASPIRIN (EC) 81 MG TAB PO (08:05)
[2018-03-03] MEDS: ENOXAPARIN 30 MG/0.3 ML SYG SC (08:06)
[2018-03-03] MEDS: DICLOFENAC SODIUM 1% GEL 100 GM TUBE TP ×2 (08:06→21:00)
[2018-03-03] MEDS: TRIMETHOPRIM/SULFAMETHOX (DS) TAB PO (08:08)
[2018-03-03] MEDS: LOSARTAN 50 MG TAB PO ×2 (08:35→21:02)
[2018-03-03] MEDS: FLUOCINONIDE 0.05% 15 GM CR TOP ×2 (12:13→21:00)
[2018-03-03] MEDS: COLLAGENASE 5 GM (UD JAR) TOP (12:13)
[2018-03-03] MEDS: MUPIROCIN 2% 22 GM OINT TOP (12:13)
[2018-03-03] MEDS: LIDOCAINE 4% CR TOP (19:33)
[2018-03-03] MEDS: RANITIDINE 150 MG TAB PO (21:00)
[2018-03-03] MEDS: LORAZEPAM 1 MG TAB PO (21:02)
[2018-03-03] MEDS: INSULIN GLARGINE [LANTus] (100 UNITS/ML) SYG SC (21:11)
[2018-03-04] MEDS: ALBUTEROL/IPRATROPIUM (NEB) 3 ML AMP HHN ×6 (01:00→20:07)
[2018-03-04] MEDS: ACCU-CHEK XX (02:00)
[2018-03-04] MEDS: HYDROCODONE/APAP (10/325) TAB PO ×3 (02:28→21:36)
[2018-03-04] MEDS: INSULIN ASPART [NOVOLOG] 3 ML PEN SC ×7 (07:35→21:00)
[2018-03-04] MEDS: MUPIROCIN 2% 22 GM OINT TOP (09:00)
[2018-03-04] MEDS: FLUOCINONIDE 0.05% 15 GM CR TOP ×2 (09:00→21:00)
[2018-03-04] MEDS: DICLOFENAC SODIUM 1% GEL 100 GM TUBE TP ×2 (09:00→21:25)
[2018-03-04] MEDS: LOSARTAN 50 MG TAB PO ×2 (09:00→21:00)
[2018-03-04] MEDS: COLLAGENASE 5 GM (UD JAR) TOP (09:00)
[2018-03-04] MEDS: LINAGLIPTIN 5 MG TABLET PO (09:52)
[2018-03-04] MEDS: ASPIRIN (EC) 81 MG TAB PO (10:00)
[2018-03-04] MEDS: DOCUSATE SODIUM 100 MG CAP PO ×2 (10:00→21:18)
[2018-03-04] MEDS: ENOXAPARIN 30 MG/0.3 ML SYG SC (10:08)
[2018-03-04] MEDS: LORAZEPAM 1 MG TAB PO (21:18)
[2018-03-04] MEDS: RANITIDINE 150 MG TAB PO (21:18)
[2018-03-04] MEDS: INSULIN GLARGINE [LANTus] (100 UNITS/ML) SYG SC (21:21)
[2018-03-05] MEDS: ALBUTEROL/IPRATROPIUM (NEB) 3 ML AMP HHN ×5 (00:33→16:53)
[2018-03-05] MEDS: ACCU-CHEK XX (02:00)
[2018-03-05] MEDS: HYDROCODONE/APAP (10/325) TAB PO ×2 (06:51→10:07)
[2018-03-05] MEDS: INSULIN ASPART [NOVOLOG] 3 ML PEN SC ×4 (07:35→17:35)
[2018-03-05] MEDS: DICLOFENAC SODIUM 1% GEL 100 GM TUBE TP (09:00)
[2018-03-05] MEDS: COLLAGENASE 5 GM (UD JAR) TOP (09:00)
[2018-03-05] MEDS: FLUOCINONIDE 0.05% 15 GM CR TOP (09:00)
[2018-03-05] MEDS: MUPIROCIN 2% 22 GM OINT TOP (09:00)
[2018-03-05] MEDS: LOSARTAN 50 MG TAB PO (10:00)
[2018-03-05] MEDS: LINAGLIPTIN 5 MG TABLET PO (10:06)
[2018-03-05] MEDS: ASPIRIN (EC) 81 MG TAB PO (10:07)
[2018-03-05] MEDS: DOCUSATE SODIUM 100 MG CAP PO (10:07)
[2018-03-05] MEDS: ENOXAPARIN 30 MG/0.3 ML SYG SC (10:15)
[2018-03-05] MEDS ORDERED: ONDANSETRON (ODT) 4 MG TAB ODT (15:00)
== END 2018-03-05 18:15 | disposition home health service (06) | DRG 167 ==
LOC: VRC 16:05
PROC: F07Z5ZZ Bed Mobility Treatment (ICD-10-PCS; principal; 2018-02-18)
PROC: F08Z2ZZ Grooming/Personal Hygiene Treatment (ICD-10-PCS; 2018-02-18)
PROC: 3E0F7GC Introduction of Other Therapeutic Substance into Respiratory Tract, Via Natural or Artificial Opening (ICD-10-PCS; 2018-02-18)
PROC: 0JBP0ZZ Excision of Left Lower Leg Subcutaneous Tissue and Fascia, Open Approach (ICD-10-PCS; 2018-02-23)
PROC: 0JBN0ZZ Excision of Right Lower Leg Subcutaneous Tissue and Fascia, Open Approach (ICD-10-PCS; 2018-02-23)
PROC: 0JBP0ZZ Excision of Left Lower Leg Subcutaneous Tissue and Fascia, Open Approach (ICD-10-PCS; 2018-03-01)
PROC: 0JBN0ZZ Excision of Right Lower Leg Subcutaneous Tissue and Fascia, Open Approach (ICD-10-PCS; 2018-03-01)
DX: J44.1 Chronic obstructive pulmonary disease with (acute) exacerbation (principal); Z68.43 Body mass index [BMI] 50.0-59.9, adult; L97.829 Non-pressure chronic ulcer of other part of left lower leg with unspecified severity; L97.819 Non-pressure chronic ulcer of other part of right lower leg with unspecified severity; L03.116 Cellulitis of left lower limb; L03.115 Cellulitis of right lower limb; I87.8 Other specified disorders of veins; E66.01 Morbid (severe) obesity due to excess calories; I10 Essential (primary) hypertension; M17.0 Bilateral primary osteoarthritis of knee; Z79.82 Long term (current) use of aspirin; R53.1 Weakness; R53.81 Other malaise; E11.65 Type 2 diabetes mellitus with hyperglycemia; I89.0 Lymphedema, not elsewhere classified; G47.62 Sleep related leg cramps
CPT/HCPCS: 80053; 81001; 82962; 85025; 87070; 87081; 87086; 93970; 94640; 94664; 97110; 97112; 97116; 97163; 97167; 97530; 97535; 97542